=== PATIENT | female | born 1985 | race Caucasian/White ===

== ENCOUNTER 2023-03-13 13:20 | Outpatient (RCR) | payer MEDICAID ==
[2023-03-06 13:59] LABS: HEMATOCRIT 37 % (35-52); HEMOGLOBIN 11.7 g/dL (11.5-16.0); MEAN CORPUSCULAR HEMOGLOBIN 29 pg (25-34); MEAN CORPUSCULAR HGB CONC 32 g/dL (32-36); MEAN CORPUSCULAR VOLUME 92 fL (80-99); MEAN PLATELET VOLUME 9.1 fL (9.0-12.2); PLATELET COUNT 242 10^3/uL (130-400); WHITE BLOOD COUNT 7.4 10^3/uL (4.3-11.0)
[2023-03-06 14:10] VITALS: BP 167/107
[2023-03-06 14:19] LABS: CALCIUM 8.7 MG/DL (8.5-10.1); CREATININE SERUM 0.63 MG/DL (0.60-1.30); POTASSIUM 3.4 MMOL/L (3.6-5.0)
[2023-03-06 14:21] LABS: ERYTHROCYTE SEDIMENTATION RATE 40 MM/HR (0-20)
[~2023-03-13] VITALS: Ht 147.3 cm; Wt 93.6 kg
[2023-03-13 13:20] VITALS: BP 133/83
[~2023-03-13 13:20] MED LIST: HYDR-1231 PO; HYDR1CAP2 PO; HYDR1TAB PO; METR500T PO; MICO1COM; TRM50T PO; VALA100033 PO
[2023-03-13 14:14] LABS: HEMATOCRIT 40 % (35-52); HEMOGLOBIN 13.1 g/dL (11.5-16.0); MEAN CORPUSCULAR HEMOGLOBIN 29 pg (25-34); MEAN CORPUSCULAR HGB CONC 33 g/dL (32-36); MEAN CORPUSCULAR VOLUME 90 fL (80-99); MEAN PLATELET VOLUME 9.5 fL (9.0-12.2); PLATELET COUNT 309 10^3/uL (130-400); WHITE BLOOD COUNT 7.5 10^3/uL (4.3-11.0)
[2023-03-13 14:29] LABS: POTASSIUM 3.9 MMOL/L (3.6-5.0)
[2023-03-13 14:31] LABS: CALCIUM 9.1 MG/DL (8.5-10.1)
[2023-03-13 14:35] LABS: CREATININE SERUM 0.65 MG/DL (0.60-1.30)
[2023-03-13 14:37] LABS: ERYTHROCYTE SEDIMENTATION RATE 47 MM/HR (0-20)
== END 2023-03-18 | disposition home or self-care (01) ==
LOC: SDC 13:20
PROVIDERS: ATTEND Specialist
DX: Z45.2 Encounter for adjustment and management of vascular access device (principal)
CPT/HCPCS: 80048; 82550; 85027; 85652; 86141; G0463; 36415; 99211

== ENCOUNTER 2023-04-11 12:19 | Outpatient (RCR) | payer MEDICAID ==
[2023-03-20 13:30] VITALS: BP 126/88
[2023-03-20 13:39] LABS: HEMATOCRIT 41 % (35-52); HEMOGLOBIN 13.5 g/dL (11.5-16.0); MEAN CORPUSCULAR HEMOGLOBIN 30 pg (25-34); MEAN CORPUSCULAR HGB CONC 33 g/dL (32-36); MEAN CORPUSCULAR VOLUME 90 fL (80-99); MEAN PLATELET VOLUME 9.4 fL (9.0-12.2); PLATELET COUNT 289 10^3/uL (130-400); WHITE BLOOD COUNT 6.9 10^3/uL (4.3-11.0)
[2023-03-20 14:00] LABS: ERYTHROCYTE SEDIMENTATION RATE 32 MM/HR (0-20)
[2023-03-20 14:04] LABS: CREATININE SERUM 0.68 MG/DL (0.60-1.30)
[2023-03-27 13:20] VITALS: BP 137/84
[2023-03-27 13:26] LABS: HEMATOCRIT 41 % (35-52); HEMOGLOBIN 13.3 g/dL (11.5-16.0); MEAN CORPUSCULAR HEMOGLOBIN 30 pg (25-34); MEAN CORPUSCULAR HGB CONC 33 g/dL (32-36); MEAN CORPUSCULAR VOLUME 91 fL (80-99); MEAN PLATELET VOLUME 9.9 fL (9.0-12.2); PLATELET COUNT 250 10^3/uL (130-400); WHITE BLOOD COUNT 7.4 10^3/uL (4.3-11.0)
[2023-03-27 13:44] LABS: CALCIUM 8.8 MG/DL (8.5-10.1); CREATININE SERUM 0.69 MG/DL (0.60-1.30); POTASSIUM 3.7 MMOL/L (3.6-5.0)
[2023-03-27 13:47] LABS: ERYTHROCYTE SEDIMENTATION RATE 47 MM/HR (0-20)
[2023-04-03 13:10] VITALS: BP 126/88
[2023-04-03 13:37] LABS: HEMATOCRIT 40 % (35-52); HEMOGLOBIN 13.2 g/dL (11.5-16.0); MEAN CORPUSCULAR HEMOGLOBIN 29 pg (25-34); MEAN CORPUSCULAR HGB CONC 33 g/dL (32-36); MEAN CORPUSCULAR VOLUME 90 fL (80-99); MEAN PLATELET VOLUME 9.3 fL (9.0-12.2); PLATELET COUNT 236 10^3/uL (130-400); WHITE BLOOD COUNT 7.2 10^3/uL (4.3-11.0)
[2023-04-03 13:50] LABS: POTASSIUM 4.1 MMOL/L (3.6-5.0)
[2023-04-03 13:51] LABS: CALCIUM 9.3 MG/DL (8.5-10.1)
[2023-04-03 13:55] LABS: CREATININE SERUM 0.65 MG/DL (0.60-1.30)
[2023-04-03 14:08] LABS: ERYTHROCYTE SEDIMENTATION RATE 33 MM/HR (0-20)
[2023-04-11 12:15] VITALS: BP 137/81
[2023-04-11 12:45] LABS: BASOPHILS % (AUTO) 0 % (0-10); EOSINOPHILS # (AUTO) 0.2 10^3/uL (0.0-0.3); EOSINOPHILS % (AUTO) 4 % (0-10); HEMATOCRIT 39 % (35-52); HEMOGLOBIN 12.8 g/dL (11.5-16.0); LYMPHOCYTES # (AUTO) 2.7 10^3/uL (1.0-4.0); LYMPHOCYTES % (AUTO) 40 % (12-44); MEAN CORPUSCULAR HEMOGLOBIN 30 pg (25-34); MEAN CORPUSCULAR HGB CONC 33 g/dL (32-36); MEAN CORPUSCULAR VOLUME 89 fL (80-99); MEAN PLATELET VOLUME 9.7 fL (9.0-12.2); MONOCYTES # (AUTO) 0.4 10^3/uL (0.0-1.0); MONOCYTES % (AUTO) 5 % (0-12); NEUTROPHILS # (AUTO) 3.5 10^3/uL (1.8-7.8); NEUTROPHILS % (AUTO) 51 % (42-75); PLATELET COUNT 246 10^3/uL (130-400); WHITE BLOOD COUNT 6.8 10^3/uL (4.3-11.0)
[2023-04-11 12:53] LABS: POTASSIUM 3.9 MMOL/L (3.6-5.0)
[2023-04-11 12:54] LABS: CALCIUM 9.3 MG/DL (8.5-10.1)
[2023-04-11 12:58] LABS: CREATININE SERUM 0.64 MG/DL (0.60-1.30)
[2023-04-11 13:18] LABS: ERYTHROCYTE SEDIMENTATION RATE 34 MM/HR (0-20)
== END 2023-04-18 | disposition home or self-care (01) ==
LOC: SDC 12:19
PROVIDERS: ATTEND Specialist
DX: Z45.2 Encounter for adjustment and management of vascular access device (principal); M86.6 Other chronic osteomyelitis
CPT/HCPCS: 80048; 82550; 85027; 85652; 86141; G0463; 36415; 85025; 99211

== ENCOUNTER 2023-05-12 13:00 | Outpatient (RCR) | payer MEDICAID ==
[2023-04-29] MEDS: DAPTOmycin 500 MG/NS 50 ML IVPB IV SCH ×2 (09:50)
[2023-04-29 10:10] VITALS: BP 173/91
[2023-04-30] MEDS: DAPTOmycin 500 MG/NS 50 ML IVPB IV SCH ×2 (09:03)
[2023-04-30 09:57] VITALS: BP 146/83
[2023-05-01] MEDS: DAPTOmycin 500 MG/NS 50 ML IVPB IV SCH ×2 (10:35)
[2023-05-01 11:17] VITALS: BP 166/81
[2023-05-05 13:40] VITALS: BP 167/92
[2023-05-05 13:55] LABS: HEMATOCRIT 40 % (35-52); HEMOGLOBIN 13.2 g/dL (11.5-16.0); MEAN CORPUSCULAR HEMOGLOBIN 29 pg (25-34); MEAN CORPUSCULAR HGB CONC 33 g/dL (32-36); MEAN CORPUSCULAR VOLUME 90 fL (80-99); MEAN PLATELET VOLUME 9.1 fL (9.0-12.2); PLATELET COUNT 309 10^3/uL (130-400); WHITE BLOOD COUNT 6.4 10^3/uL (4.3-11.0)
[2023-05-05 14:12] LABS: CREATININE SERUM 0.68 MG/DL (0.60-1.30); POTASSIUM 4.6 MMOL/L (3.6-5.0)
[2023-05-05 14:15] LABS: ERYTHROCYTE SEDIMENTATION RATE 37 MM/HR (0-20)
[~2023-05-12] VITALS: Ht 95 cm; Wt 93.6 kg
[2023-05-12 13:05] VITALS: BP 162/85
[2023-05-12 13:41] LABS: BASOPHILS % (AUTO) 0 % (0-10); EOSINOPHILS # (AUTO) 0.1 10^3/uL (0.0-0.3); EOSINOPHILS % (AUTO) 2 % (0-10); HEMATOCRIT 40 % (35-52); HEMOGLOBIN 13.2 g/dL (11.5-16.0); LYMPHOCYTES # (AUTO) 2.2 10^3/uL (1.0-4.0); LYMPHOCYTES % (AUTO) 37 % (12-44); MEAN CORPUSCULAR HEMOGLOBIN 30 pg (25-34); MEAN CORPUSCULAR HGB CONC 33 g/dL (32-36); MEAN CORPUSCULAR VOLUME 90 fL (80-99); MEAN PLATELET VOLUME 9.4 fL (9.0-12.2); MONOCYTES # (AUTO) 0.3 10^3/uL (0.0-1.0); MONOCYTES % (AUTO) 4 % (0-12); NEUTROPHILS # (AUTO) 3.3 10^3/uL (1.8-7.8); NEUTROPHILS % (AUTO) 56 % (42-75); PLATELET COUNT 217 10^3/uL (130-400); WHITE BLOOD COUNT 5.9 10^3/uL (4.3-11.0)
[2023-05-12 13:55] LABS: POTASSIUM 4.2 MMOL/L (3.6-5.0)
[2023-05-12 13:56] LABS: CALCIUM 8.5 MG/DL (8.5-10.1)
[2023-05-12 14:01] LABS: CREATININE SERUM 0.73 MG/DL (0.60-1.30)
[2023-05-12 14:12] LABS: ATYPICAL LYMPHOCYTES 1 %; EOSINOPHILS % (MANUAL) 3 %; LYMPHOCYTES % (MANUAL) 40 %; MONOCYTES % (MANUAL) 3 %; NEUTROPHILS % (MANUAL) 50 %; RBC MORPH NORMAL; REACTIVE LYMPHOCYTES 3 %
[2023-05-12 14:16] LABS: ERYTHROCYTE SEDIMENTATION RATE 19 MM/HR (0-20)
== END 2023-05-18 | disposition home or self-care (01) ==
LOC: SDC 13:00
PROVIDERS: ATTEND Specialist
DX: Z45.2 Encounter for adjustment and management of vascular access device (principal)
CPT/HCPCS: 36415; 80048; 82550; 85007; 85027; 85652; 86141; 96365; 99211